=== PATIENT | female | born 1990 | race Caucasian/White ===

== ENCOUNTER 2022-01-10 07:21 | Outpatient (CLI) | payer OTHER, SELFPAY ==
[2022-01-10 08:05] LABS: Basophils Percent Auto 0.3 % (0.2-1.2); Eosinophils Absolute Auto 0.1 K/mm3 (0-0.3); Eosinophils Percent Auto 1.5 % (0-4.4); Hematocrit 38.6 % (37.0-47.0); Hemoglobin 13.4 g/dL (12.0-15.0); Immature Granulocyte Absolute 0.02 K/mm3 (0.00-0.031); Immature Granulocyte Percent A 0.2 % (0-0.5); Lymphocytes Absolute Auto 3.79 K/mm3 (0.9-3.2); Lymphocytes Percent Auto 40.5 % (18.3-44.2); Mean Corpuscular HGB Conc 34.7 g/dl (32-36); Mean Corpuscular Hemoglobin 30.6 pg (26-34); Mean Corpuscular Volume 88.1 fl (80-100); Mean Platelet Volume 9.3 fl (7.4-10.4); Monocytes Absolute Auto 0.7 K/mm3 (0.1-0.6); Monocytes Percent Auto 7.8 % (2.6-8.5); Neutrophils Absolute Auto 4.6 K/mm3 (1.3-6.7); Neutrophils Percent Auto 49.7 % (45.5-73.1); Platelet Count Result 291 k/mm3 (150-375); Red Blood Count 4.38 M/mm3 (4.2-5.4); Red Cell Distribution Width 12.3 % (11.5-14.5); White Blood Count 9.4 K/mm3 (4.5-10.0)
== END 2022-01-10 07:22 | disposition home or self-care (01) ==
PROVIDERS: PCP Family Medicine; Visit Provider Obstetrics & Gynecology
DX: R10.2 Pelvic and perineal pain (principal)
CPT/HCPCS: 36415; 85025; 86850; 86900; 86901

== ENCOUNTER 2022-01-12 01:38 | Day surgery (SDC) | payer OTHER, SELFPAY ==
[2022-01-05 14:15] VITALS: BMI 34.9
--- NOTE | 2022-01-05 14:21 | PC.NURSE ---
Report to the Outpatient Waiting Room, entrance under the green pavilion located off [facility], at time 6:00 on date 01/12/22. OR Time: 7:30. - You and your visitor will be asked a series of questions to screen for COVID 19 for your protection. - Only one visitor is allowed at this time. - The patient visitor is requested to leave or wait in car when not with patient. - A mask is required within the hospital. Patients may have clear liquids (water, carbonated beverages, clear teas, apple juice) until 3 hours prior to surgery (4:30) with a maximum of 20 ounces. - No food from midnight until time of surgery Take the following medications with a SIP of water the morning of surgery: NONE Medications to discontinue per physician: VITAMINS/SUPPLEMENTS Date to take last dose: 01/08/22 Please no make-up, nail italian, hairspray, perfume, deodorant, or body powder the day of surgery. No jewelry (including any body piercings) or valuables the day of surgery, leave them at home. Please take a shower or bath the night before, or the morning of, surgery with an antibacterial soap. Wear comfortable, loose fitting clothing. - Jewelry must be removed prior to entering the operating room. Rings and piercings that are not removed may be cut off. - The hospital will not accept responsibility for valuables. - Please leave all valuables, including medications, at home the day of surgery. If you are going home after surgery, a licensed sweeper driver must drive you home. - NO public transportation without another adult. - We recommend that an adult stay with you for 24 hours following discharge. - We also recommend that you do not drive, make important decision, drink alcoholic beverages, or take any drugs that were not prescribed by your health care provider for at least 24 hours after your discharge time. Follow any additional instructions given to you from your surgeon. If you or anyone in your household have experienced Covid symptoms in the past week, please notify your surgeon or the nurse liaison at the phone number below for possible testing. Telephone instructions given to PT - ASHIA ROJAS and asked if any additional questions and then verbalized understanding. Patient advised to call surgeon office or pre surgery nurse liaison [phone] if any additional questions.
--- NOTE | 2022-01-10 07:49 | PM.IMHP ---
H&P: HPI History of Present Illness Date/Time: 01/10/22 07:49 Chief Complaint: Pelvic pain bleeding PMFSH Past Medical History Medical History Allergies Anxiety Social History Social History Smoking status: Never smoker Alcohol intake: current Drinks per week: 3 Substance use: never Substance use type: does not use Spiritual care concerns: No Meds Home Medications and Allergies Home Medications Medication Instructions Recorded Confirmed Type cetirizine 10 mg tablet (Zyrtec) 10 mg PO DAILY 01/05/22 01/05/22 History magnesium 250 mg tablet 1,000 mg PO DAILY 01/05/22 01/05/22 History multivitamin 1 tablet PO DAILY 01/05/22 01/05/22 History Allergies Allergy/AdvReac Type Severity Reaction Status Date / Time Penicillins Allergy Anaphylaxis Verified 01/05/22 14:13 Exam Const: General: cooperative and healthy appearing Nutritional Appearance: average body habitus Orientation/consciousness: oriented to person, oriented to place and oriented to time HENMT: Head: normal to inspection Chest: Chest palpation & inspection: normal inspection of the chest Resp: Effort & Inspection: normal respiratory effort GI: Inspection: normal to inspection : External Female Exam: normal external appearance Speculum Exam - Vagina: normal appearance of the vagina Speculum Exam - Cervix: normal appearance of the cervix Bimanual exam- vagina & uterus: enlarged and Uterine tenderness Bimanual Exam- Adnexa, other: normal adnexae Assessment and Plan Assessment and plan (1) Pelvic pain: Code(s): R10.2 - Pelvic and perineal pain Status: Acute (2) Enlarged uterus: Code(s): N85.2 - Hypertrophy of uterus Status: Acute Plan Robotic total vaginal hysterectomy and bilateral salpingectomy
--- NOTE | 2022-01-11 12:21 | P.PNAN_ITS ---
Anes - Initial Pre Proc Eval Procedure: Operation Date: 01/12/22 07:30 Proposed Procedures p Robotic Assisted Total Vaginal Hysterectomy with Bilateral Salpingectomy - Portillo Salcido MD Date/Time: 01/11/22 12:21 Surgeon: Portillo Salcido MD Pre Op Diagnosis: pelvic pain, enlarged uterus, heavy bleeding Patient Data Age: 31 Gender: F Height: 1.57 m Weight: 86.64 kg Allergies Allergy/AdvReac Type Severity Reaction Status Date / Time Penicillins Allergy Severe Anaphylaxis Verified 01/12/22 06:02 Home Medications Medication Instructions Recorded Confirmed Type cetirizine 10 mg tablet (Zyrtec) 10 mg PO DAILY 01/05/22 01/12/22 History magnesium 250 mg tablet 1,000 mg PO DAILY 01/05/22 01/12/22 History multivitamin 1 tablet PO DAILY 01/05/22 01/12/22 History butalbital 50 mg-acetaminophen 325 1 cap PO Q6H PRN Headache 01/12/22 01/12/22 History mg-caffeine 40 mg-codeine 30 mg cap Patient hx anesthesia problems: none Family hx anesthesia problems: none Results Review: All pre-operative results and documents have been reviewed as part of the pre- operative evaluation. [facility] Past Medical History Medical History (Updated 01/11/22 @ 12:22 by Jesse Turner MD) Abnormal uterine bleeding Allergies Anxiety HTN (hypertension) Ureterolithiasis Social History Social History Smoking status: Never smoker Alcohol intake: current Drinks per week: 3 Substance use: never Substance use type: does not use Living arrangements: with family Spiritual care concerns: No Anes - Eval Final PreProcedure Day of Procedure 01/11/22 12:21 Patient weight: obese Heart: regular rate and rhythm Lungs: clear to auscultation and normal air movement Airway: Mallampati scale class II Neurological: alert and oriented Last oral intake: >/= 8 hours ASA classification: III Emergent: no Anesthetic plan: proceed Anesthesia type and monitoring: general ETT Results Review: All pre-operative results and documents have been reviewed as part of the pre- operative evaluation. Informed Consent: The patient's anesthetic plan and its attendant risks and benefits were discussed with the patient/family/POA. Questions were solicited and answers provided to the satisfaction of the patient/family/POA.
[2022-01-12] VITALS (14 sets, daily range): BP systolic 107–156; BP diastolic 56–96; PULSE 62–104; RESP 12–22; TEMP 36.1–37.3; O2SAT 96–100
[2022-01-12] MEDS: ACETAMINOPHEN 500 MG TABLET 1000 MG PO (06:06)
[2022-01-12] MEDS: LACTATED RINGERS 1,000 ML 30 ML IV CONT ×2 (06:47→08:50)
[2022-01-12] MEDS: KETOROLAC 15 MG/ML VIAL (*BKC) IV PUSH (06:48)
--- NOTE | 2022-01-12 07:14 | WPDHPUPDATE1 ---
History and Physical Update Update Date/Time: 01/12/22 07:14 History and Physical has been reviewed, including an updated exam of the patient. There are NO changes in the patient's condition. Risks, benefits, and alternatives have been discussed and questions answered. Patient agrees to proceed with procedure.
[2022-01-12] MEDS: ceFAZolin 2 GM/D5W 50 ML 2 GM/50 ML BAG IVPB (07:24)
--- NOTE | 2022-01-12 08:26 | W.PM.PROC2 ---
Procedure Note - Detailed Date of Procedure 01/12/22 Pre-op Diagnosis pelvic pain, enlarged uterus, heavy bleeding Post-op Diagnosis Same Procedure Performed Robotic total vaginal hysterectomy bilateral salpingectomies Surgeon Portillo Salcido MD Anesthesia General Indications Is a 31 with history of bleeding fracture to therapy Findings Enlarged uterus. Normal-appearing ovaries tubes Description of Procedure The patient was prepped and draped in normal sterile fashion placed in the dorsal lithotomy position. Under excellent general trach anesthesia weighted speculum was placed in posterior fornix vagina. Anterior lip of the cervix grasped with a single-tooth tenaculum. The uterus sounded to10+ cm. The 10. KIN and 3. Cold cup were then placed and attached to the cervix and the single-tooth removed. The bladder then drained of clear urine with a 16 Taj[place] catheter. Gloves were changed. A supraumbilical incision made the Veress needle passed in the abdomen. Abdomen filled with CO2 gas to 15 of mercury. The 8mm trocar advanced in the abdomen. Downside visualized no injury seen. Patient placed in Trendelenburg and right left lateral quadrant incisions made. The 8mm trocars advanced under direct visualization assuring no injury. A right upper quadrant incision made and the 8mm trocar advanced under direct visualization assuring no injury. Robot was docked. Attention was turned to the credit support counselor. The left round ligament was grasped. Clamped burned anteriorly a bladder flap was formed by sharply dissecting the the peritoneum and reflecting the bladder caudally to the opposite round ligament which was clamped, burned, cut. Next the left fallopian tube was dissected away from the ovarian complex and left attached to the uterine origin a muñoz. In like fashion the right fallopian tube was dissected from the right ovary and left attached to the uterine origination. The left utero-ovarian ligament was skeletonized to conserve the left ovary. This was clamped, burned, cut and brought to level of previously cut round ligament. In like fashion the utero-ovarian ligament the right was skeletonized clamped, burned, cut and brought to the level of previously cut round ligament the os conserving the right ovary. The left cardinal and broad ligaments were then serially skeletonized clamping burning cutting wall hugging the cervix and uterus until the vessels on the left could be seen. These were individually clamped, burned, cut. In like fashion cardinal broad ligaments on the right were serially skeletonized. These were clamped, burned, cut and brought to the uterine vessels. These were large and tortuous and were individually clamped, burned, cut. A colpotomy incision was made when good blanching was uterus and cervix. The uterus cervix and tubes removed through the vagina. The vagina was then closed with continuous running 0V lock from lateral edge to lateral edge back to the midline. Irrigation undertaken until clear. All pedicles appeared dry. The robot was undocked the gas was removed from the abdomen. The trocars removed and the incisions closed with 4-0 Monocryl and glue. The patient was awakened and went to recovery in satisfactory condition. All sponge, needle, instrument counts were correct. There were no immediate complications Estimated Blood Loss 25 Drains No Packing No Pathology Yes Complications No immediate complications Condition Stable Disposition PACU
--- NOTE | 2022-01-12 09:04 | SUR.PHASEI ---
Simple mask removed at 0903.
[2022-01-12] MEDS: fentaNYL CITRATE INJ (*CRX) 100 MCG/2 ML VIAL 25 MCG IV PUSH (09:19)
[2022-01-12] MEDS: ONDANSETRON INJ 4 MG/2 ML VIAL IV PUSH (09:25)
[2022-01-12] MEDS: DEXTROSE 5%/LACTATED RINGERS 1,000 ML 125 ML IV CONT (10:24)
[2022-01-12] MEDS: KETOROLAC 30 MG/ML VIAL (*BKC) IV PUSH ×2 (10:25→19:05)
[2022-01-12] MEDS: ENOXAPARIN 40 MG/0.4 ML SYRINGE SUB-Q (10:26)
[2022-01-12] MEDS: DOCUSATE SODIUM 100 MG CAPSULE PO (19:05)
[2022-01-13 04:20] VITALS: BP 120/65; PULSE 79; RESP 18; TEMP 36.6
[2022-01-13] MEDS: IBUPROFEN 600 MG TABLET PO (04:26)
[2022-01-13 05:15] LABS: Basophils Percent Auto 0.3 % (0.2-1.2); Eosinophils Percent Auto 0.3 % (0-4.4); Hematocrit 34.2 % (37.0-47.0); Hemoglobin 11.6 g/dL (12.0-15.0); Immature Granulocyte Absolute 0.06 K/mm3 (0.00-0.031); Immature Granulocyte Percent A 0.4 % (0-0.5); Lymphocytes Absolute Auto 4.41 K/mm3 (0.9-3.2); Mean Corpuscular HGB Conc 33.9 g/dl (32-36); Mean Corpuscular Hemoglobin 30.4 pg (26-34); Mean Corpuscular Volume 89.8 fl (80-100); Mean Platelet Volume 9.5 fl (7.4-10.4); Monocytes Absolute Auto 0.9 K/mm3 (0.1-0.6); Monocytes Percent Auto 6.3 % (2.6-8.5); Neutrophils Absolute Auto 8.8 K/mm3 (1.3-6.7); Neutrophils Percent Auto 61.7 % (45.5-73.1); Platelet Count Result 279 k/mm3 (150-375); Red Blood Count 3.81 M/mm3 (4.2-5.4); Red Cell Distribution Width 12.3 % (11.5-14.5); White Blood Count 14.2 K/mm3 (4.5-10.0)
--- NOTE | 2022-01-13 07:34 | PM.GYNPNOP ---
ASSOCIATE PROFESSOR OF PATHOLOGY - A/P Assessment and plan (1) Abnormal uterine bleeding: Code(s): N93.9 - Abnormal uterine and vaginal bleeding, unspecified Status: Acute Assessment and Plan: A: POD#1 s/p robotic assisted TVHBS, doing well. P: Home to f/u 2 weeks. (2) Enlarged uterus: Code(s): N85.2 - Hypertrophy of uterus Status: Acute (3) Pelvic pain: Code(s): R10.2 - Pelvic and perineal pain Status: Acute Postoperative Procedures: Procedures Operation Date: 01/12/22 07:30 Actual Procedure Side Surgeon p Robotic Assisted Total Vaginal Hysterectomy with Bilateral Salpingectomy Bilateral Portillo Salcido MD Time Spent With Patient Time with patient: less than 15 minutes ASSOCIATE PROFESSOR OF PATHOLOGY- PN:Subj Post-Op Subjective Date/time seen: 01/13/22 07:34 Interval history: Pain OK. Tolerating diet. Voiding. Would like to go home. Exam Narrative: AVSS I/O OK ABD soft, nontender. Incisions c/d/i. EXT nontender ASSOCIATE PROFESSOR OF PATHOLOGY - PN: Obj Data Vital Signs Vital Signs: Vital Signs - 24 hr 01/12/22 08:36 01/12/22 08:50 01/12/22 09:05 Temperature 36.1 C L 36.3 C L 36.8 C Pulse Rate 70 62 64 Respiratory Rate 18 12 22 H Blood Pressure 125/61 137/81 135/75 Pulse Oximetry 100 100 97 Oxygen Delivery Simple Face Mask Simple Face Mask Room Air Oxygen Flow Rate 8 8 01/12/22 09:20 01/12/22 09:35 01/12/22 09:50 Temperature 36.5 C Pulse Rate 66 88 78 Respiratory Rate 22 H 13 14 Blood Pressure 133/71 121/76 133/85 Pulse Oximetry 96 100 100 Oxygen Delivery Room Air Room Air Room Air Oxygen Flow Rate 01/12/22 10:10 01/12/22 10:10 01/12/22 12:44 Temperature 36.7 C 36.8 C Pulse Rate 78 78 79 Respiratory Rate 16 18 16 Blood Pressure 156/96 H 150/93 H Pulse Oximetry 100 100 99 Oxygen Delivery Room Air Oxygen Flow Rate 01/12/22 12:15 01/12/22 15:43 01/12/22 15:45 Temperature 36.9 C Pulse Rate 74 104 H 104 H Respiratory Rate 14 14 Blood Pressure 140/85 137/87 Pulse Oximetry 96 96 Oxygen Delivery Room Air Oxygen Flow Rate 01/12/22 19:00 01/12/22 19:00 01/12/22 23:03 Temperature 37.1 C 36.6 C Pulse Rate 102 H 84 Respiratory Rate 18 16 Blood Pressure 150/89 H 107/56 L Pulse Oximetry Oxygen Delivery Room Air Oxygen Flow Rate 01/12/22 23:03 01/13/22 04:20 01/13/22 04:20 Temperature 36.6 C Pulse Rate 79 Respiratory Rate 18 Blood Pressure 120/65 Pulse Oximetry Oxygen Delivery Room Air Room Air Oxygen Flow Rate Intake/Output Intake/Output: Intake & Output 01/10/22 01/11/22 01/12/22 01/13/22 23:59 23:59 23:59 23:59 Intake Total 1750 1000 Output Total 3670 650 Balance -1920 350 Meds/Results Medications: Active Medications Generic Name Dose Route Start Last Admin Trade Name Freq PRN Reason Stop Dose Admin Hydrocodone Bitart/Acetaminophen 1 tab 01/12/22 09:56 Hydrocodone/Acetaminophen (*Crx) 5-325 Mg Tablet PO Q3H PRN Pain Rated 5 or Less Hydrocodone Bitart/Acetaminophen 1 tab 01/12/22 09:56 Hydrocodone/Acetaminophen (*Crx) 10-325 Mg Tablet PO Q3H PRN Pain Rated 6 or Greater Docusate Sodium 100 mg 01/12/22 09:56 01/12/22 19:05 Docusate Sodium 100 Mg Capsule PO 100 mg BID HAMILTON Administration Enoxaparin Sodium 40 mg 01/12/22 09:56 01/12/22 10:26 Enoxaparin 40 Mg/0.4 Ml Syringe SUB-Q 40 mg DAILY HAMILTON Administration Ibuprofen 600 mg 01/12/22 09:56 01/13/22 04:26 Ibuprofen 600 Mg Tablet PO 600 mg Q6H PRN Administration Cramping Ketorolac Tromethamine 30 mg 01/12/22 09:56 01/12/22 19:05 Ketorolac 30 Mg/Ml Vial (*Bkc) IV PUSH 01/17/22 09:55 30 mg Q6H PRN Administration Pain Rated 4-6 Naloxone HCl 0.1 mg 01/12/22 09:56 Naloxone Hcl 0.4 Mg/Ml Vial IV PUSH Q2M PRN Respiratory rate less than 10 Ondansetron HCl 4 mg 01/12/22 09:56 Ondansetron Inj 4 Mg/2 Ml Vial IV PUSH Q6H PRN Nausea And Vomiting Srinivasan
[2022-01-13 08:10] VITALS: BP 134/77; PULSE 71; RESP 16; RESP 18; TEMP 36.2; O2SAT 100
--- NOTE | 2022-01-13 09:55 | P.PNAN_ITS ---
Anes - Prog Note Post-Op Date/Time: 01/13/22 09:55 Vital Signs: Last Vital Signs Temp 36.2 C L 01/13/22 08:10 Pulse 71 01/13/22 08:10 Resp 18 01/13/22 08:10 BP 134/77 01/13/22 08:10 Pulse Ox 100 01/13/22 08:10 O2 Del Method Room Air 01/13/22 08:10 O2 Flow Rate 8 01/12/22 08:50 Pain Score (VAS): 10 I/O: Intake & Output 01/12/22 01/13/22 01/13/22 23:59 07:59 15:59 Intake Total 600 1000 Output Total 1000 650 500 Balance -400 350 -500 Laboratory Tests 01/13/22 04:33 01/13/22 04:33 WBC 14.2 H RBC 3.81 L Hgb 11.6 L Hct 34.2 L MCV 89.8 MCH 30.4 MCHC 33.9 RDW 12.3 Plt Count 279 MPV 9.5 Immature Gran % (Auto) 0.4 Neut % (Auto) 61.7 Lymph % (Auto) 31.0 [place] % (Auto) 6.3 Eos % (Auto) 0.3 Baso % (Auto) 0.3 Lymph # (Auto) 4.41 H [place] # (Auto) 0.9 H Eos # (Auto) 0.0 Baso # (Auto) 0.0 Abs Immat Gran (auto) 0.06 H Absolute Neuts (auto) 8.8 H Absolute Nucleated RBC 0.0 Nucleated RBC % 0.0 Patient Feedback: Patient satisfied with anesthetic care.
== END 2022-01-13 09:35 | disposition home or self-care (01) ==
LOC: ANHSURGERY 07:15 → ANHOB2 10:03
PROVIDERS: PCP Family Medicine; Visit Provider Obstetrics & Gynecology
PROC: (CPT 58552; principal; 2022-01-12 07:30)
DX: R10.2 Pelvic and perineal pain (principal); D25.9 Leiomyoma of uterus, unspecified; N85.2 Hypertrophy of uterus; F41.9 Anxiety disorder, unspecified; N93.9 Abnormal uterine and vaginal bleeding, unspecified; E66.9 Obesity, unspecified; Z68.34 Body mass index [BMI] 34.0-34.9, adult
CPT/HCPCS: 58552; S2900; 36415; 85025; 88307; 99199; A9270; J0690; J1100; J1170; J1650; J1885; J2250; J2405; J2704; J2710; J3010; J7030; J7120; J7121

== ENCOUNTER 2024-08-01 06:50 | Outpatient (CLI) | payer OTHER, SELFPAY ==
--- NOTE | ~2024-08-01 | MR_ITS ---
MRI of the brain Clinical History: Migraine Technique: Axial and sagittal T1-weighted images were acquired. These were followed by axial T2-weigh ritchie, diffusion weighted, gradient, and FLAIR images. Following intravenous administration of 18 cc Mu ltiHance gadolinium, T1-weighted fat-sat imaging was performed in the axial and coronal planes. Findings: There is no acute infarct, internal hemorrhage or mass lesion. No abnormal signal seen in t he brain parenchyma. Ventricles and subarachnoid spaces are unremarkable. Orbits are unremarkable. Paranasal sinuses and m astoid air cells are clear. Major intracranial flow voids are intact. Sagittal midline structures are intact. No abnormal postcontrast enhancement identified. IMPRESSION: Normal exam. Reviewed, dictated and finalized at location M. ERNMAKER IMPRESSION: Normal exam.
== END 2024-08-01 06:51 | disposition home or self-care (01) ==
PROVIDERS: PCP Family Medicine; Visit Provider Family Medicine
DX: G43.909 Migraine, unspecified, not intractable, without status migrainosus (principal)
CPT/HCPCS: 70553; A9577